=== PATIENT | male | born 1970 | race Caucasian/White ===

== ENCOUNTER → 2020-12-04 | Outpatient (CLI) | payer OTHER ==
[~2020-12-04] MED LIST: ACYCLOVIR400 MG PO; FLEXERIL 10 MG10 MG PO; FLONASE 0.05% N16 GM; NEURONTIN 100100 MG PO; PREDNISONE 50 M50 MG PO; VENTOLIN HFA 66.7 GM INH; ZITHROMAX250 MG PO
[2020-12-04 10:52] LABS: HEMOGLOBIN 15.8 gm/dl (14.0-17.5); RED BLOOD COUNT 5.28 M/UL (4.20-5.50); WHITE BLOOD COUNT 6.1 K/UL (4.5-11.0)
== END ==
LOC: LAB 10:18
PROVIDERS: Internal Medicine
DX: Q61.2 Polycystic kidney, adult type (principal)
CPT/HCPCS: 36415; 80069; 82043; 82570; 84156; 85027

== ENCOUNTER → 2021-09-02 | Outpatient (CLI) | payer OTHER ==
[2021-09-02 12:34] LABS: HEMOGLOBIN 16.8 gm/dl (14.0-17.5); RED BLOOD COUNT 5.58 M/UL (4.20-5.50); WHITE BLOOD COUNT 7.5 K/UL (4.5-11.0)
== END ==
LOC: LAB 11:10
PROVIDERS: Internal Medicine
DX: N18.4 Chronic kidney disease, stage 4 (severe) (principal)
CPT/HCPCS: 36415; 80069; 80076; 81001; 82570; 83970; 84156; 85027

== ENCOUNTER 2021-09-24 01:15 | Observation (INO) | payer OTHER ==
[2021-09-24 01:46] LABS: HEMOGLOBIN 16.6 gm/dl (14.0-17.5); RED BLOOD COUNT 5.52 M/UL (4.20-5.50); WHITE BLOOD COUNT 11.8 K/UL (4.5-11.0)
[2021-09-24 02:12] LABS: BUN/CREATININE RATIO 14 (0-10)
== END 2021-09-24 12:05 | disposition home or self-care (01) ==
LOC: ER1 01:15 → CDU 04:32
PROVIDERS: ADMIT Surgery
DX: K35.30 Acute appendicitis with localized peritonitis, without perforation or gangrene (principal); K66.0 Peritoneal adhesions (postprocedural) (postinfection); N28.1 Cyst of kidney, acquired; I71.2 Thoracic aortic aneurysm, without rupture; I12.9 Hypertensive chronic kidney disease with stage 1 through stage 4 chronic kidney disease, or unspecified chronic kidney disease; N18.9 Chronic kidney disease, unspecified; K21.9 Gastro-esophageal reflux disease without esophagitis; Z87.891 Personal history of nicotine dependence; Z20.822 Contact with and (suspected) exposure to COVID-19
CPT/HCPCS: 71275; 80053; 81001; 82150; 82550; 82553; 83690; 83874; 84484; 85025; 93005; 96365; 99285; G0378; J1100; J2001; J2250; J2405; J2704; J2710; J3010; J7030; J7120; Q9967; U0002

== ENCOUNTER → 2021-12-24 | Outpatient (CLI) | payer OTHER | LOC: LAB 10:28 | DX: N18.4 Chronic kidney disease, stage 4 (severe) (principal) | CPT/HCPCS: 36415; 80048 ==

== ENCOUNTER → 2022-06-23 | Outpatient (CLI) | payer OTHER ==
[~2022-06-23] VITALS: Ht 182.9 cm; Wt 92.5 kg
== END ==
LOC: EROP 13:51
DX: U07.1 COVID-19 (principal); Z23 Encounter for immunization; N18.32 Chronic kidney disease, stage 3b; Q61.3 Polycystic kidney, unspecified
CPT/HCPCS: M0222; Q0222